=== PATIENT | male | born 1995 | race Caucasian/White ===

== ENCOUNTER 2017-06-11 16:10 | Emergency (ER) | payer SELFPAY ==
[2017-06-11] MEDS ORDERED: Ibuprofen TAB* 600 MG PO ONE (16:20)
[2017-06-11] MEDS ORDERED: methylPREDNISolone 125 MG* 2 ML VIAL IM ONE (16:20)
[2017-06-11] MEDS ORDERED: diPHENhydraMINE PO* 50 MG PO ONE (16:20)
[2017-06-11] MEDS ORDERED: Famotidine TAB* 20 MG PO ONE (16:20)
--- NOTE | 2017-06-11 16:28 | UC ---
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 NO PREVIOUS H/O ALLERGIC REACTION TO STINGS. BY EARLY AFTERNOON STARTED FEELING HEAD PRESSURE AND RIGHT FOREARM DEVELOPED REDNESS AND SWELLING AROUND STING SITE. OVER PAST 30 MINUTES OR SO HAS DEVELOPED HIVES RIGHT GROIN AND IN GLUTEAL FOLD. NO RESPIRATORY INVOLVEMENT. NO TONGUE/LIP SWELLING. TOOK 25 MG BENADRYL 2.5 HOURS AGO. - History of Current Complaint Chief Complaint: UCAllergicReaction Stated Complaint: REACTION TO WASP STING Time Seen by Provider: 06/11/17 16:15 Hx Obtained From: Patient Onset/Duration: Gradual Onset, Lasting Hours, Still Present Severity Initially: Mild Severity Currently: Moderate Pain Intensity: 8 Pain Scale Used: 0-10 Numeric Character: Swelling, Pruritus, Hives Aggrevating Factor(s): Nothing Alleviating Factor(s): Nothing Associated Signs And Symptoms: Positive: Rash. Negative: Abdominal Pain, Chest Pain, Cough Wheezing, Diaphoresis, Difficulty Breathing, Hoarseness, Lightheadedness, Nausea, Syncope, Throat Tightening - Related Hx Possible Reaction To: Insect - Allergies/Home Medications Allergies/Adverse Reactions: Allergies Allergy/AdvReac Type Severity Reaction Status Date / Time Amoxicillin Allergy Intermediate Rash Verified 06/11/17 16:16 Home Medications: Home Medications Diphenhydramine HCl [Benadryl Allergy 25 MG TAB] 25 mg PO Q8HR PRN 06/11/17 [ History Confirmed 06/11/17] PMH/Surg Hx/FS Hx/Imm Hx Previously Healthy: Yes - Surgical History Surgical History: Yes Surgery Procedure, Year, and Place: tear duct repair at - Family History Known Family History: Positive: Diabetes Negative: Hypertension - Social History Alcohol Use: Occasionally Substance Use Type: None Smoking Status (MU): Heavy Every Day Tobacco Smoker Household Exposure Type: Cigarettes - Immunization History Most Recent Tetanus Shot: less then 5 years ago Review of Systems Constitutional: Negative Skin: Rash, Other - REDNESS RIGHT ARM Respiratory: Negative Cardiovascular: Negative Gastrointestinal: Negative Musculoskeletal: Edema Neurological: Headache All Other Systems Reviewed And Are Negative: Yes Physical Exam Triage Information Reviewed: Yes Appearance: Well-Appearing, No Pain Distress, Well-Nourished Vital Signs: Initial Vital Signs Temp 98.9 F 06/11/17 16:12 Pulse 69 06/11/17 16:12 Resp 18 07/26/17 16:12 BP 131/69 06/11/17 16:12 Pulse Ox 98 06/11/17 16:12 Vital Signs Reviewed: Yes Eyes: Positive: Conjunctiva Clear ENT: Positive: Hearing grossly normal, Pharynx normal Neck: Positive: Supple, Nontender, No Lymphadenopathy Respiratory Exam: Normal Cardiovascular Exam: Normal Abdomen Description: Positive: Soft Musculoskeletal: Positive: Edema @ - RIGHT FOREARM Neurological: Positive: Alert Psychological: Positive: Age Appropriate Behavior Skin: Positive: rashes - ERYTHEMA AT STING SITE RIGHT FOREARM. HIVES RIGHT GROIN AND GLUTEAL CREASE Re-Evaluation - Re-Evaluation First Eval Re-Evaluation Time: 17:15 - FEELING BETTER AFTER SOLUMEDROL, PEPCID, BENADRYL AND IBUPROFEN. HIVES ARE IMPROVED. CHISHOLM IS LESS. WANTS TO GO HOME. Change: Improved Allergic Reaction Course/Dx - Differential Dx/Diagnosis Provider Diagnoses: ALLERGIC REACTION TO WASP STING Discharge - Discharge Plan Condition: Stable Disposition: HOME Prescriptions: Epinephrine [Epipen 2-Douglas] 0.3 mg IM ONCE PRN #1 inj PRN Reason: Allergy Symptoms predniSONE TAB* [Deltasone TAB*] 50 mg PO DAILY #5 tab Patient Education Materials: General Allergic Reaction (ED) Forms: *Work Release Referrals: Nilda Costa MD [Medical Doctor] - If Needed Additional Instructions: TAKE THE PREDNISONE DAILY STARTING TOMORROW. AVOID HEAT AND HOT WATER TAKE OTC ANTIHISTAMINE DAILY (CLARITIN (LORATADINE), ZYRTEC (CETIRIZINE) OR ANA (FEXOFENADINE) IN THE MORNING, BENADRYL AT NIGHT) DO NOT SCRATCH KEEP COOL, CLEAN AND DRY GO TO THE ER WITHOUT FAIL IF YOU DEVELOP ANY RESPIRATORY INVOLVEMENT.
[2017-06-11 17:36] VITALS: BP 114/61
== END 2017-06-11 17:34 | disposition home or self-care (01) ==
LOC: UCEAST 16:10
DX: T63.461A Toxic effect of venom of wasps, accidental (unintentional), initial encounter (principal); T78.40XA Allergy, unspecified, initial encounter; Y92.410 Unspecified street and highway as the place of occurrence of the external cause; Z72.0 Tobacco use
CPT/HCPCS: 96372; 99212; A9270-GY; G0463; J2930

== ENCOUNTER 2017-09-24 06:43 | Emergency (ER) | payer SELFPAY ==
[2017-09-24] MEDS ORDERED: Ibuprofen TAB* 600 MG PO ONE (07:26)
--- NOTE | 2017-09-24 08:08 | RAD ---
Indication: Left second finger injury. 3 views left second digit demonstrates fracture of the distal tuft of the second digit. Minimal displacement is noted. IMPRESSION: Fracture of the distal tuft of the second digit.
[2017-09-24 08:37] VITALS: BP 139/99
--- NOTE | 2017-09-24 09:08 | ED ---
Billy Castellanos Angela, scribed for Sky Chaves MD on 09/24/17 at 0730 . Upper Extremity Pain - HPI Summary HPI Summary: This pt is a 22 y/o male presenting to [facility] c/o pain and swelling on his left index finger since this morning. 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 His pain is aggravated with movement. Pt denies any other injuries. - History of Current Complaint Chief Complaint: EDExtremityUpper Stated Complaint: LEFT INDEX FINGER INJURY Hx Obtained From: Patient Mechanism Of Injury: Other - "smashed" between 2 cans Onset/Duration: Started Hours Ago, Traumatic, Still Present Timing: Constant, Lasting Hours Severity Currently: Severe - 8/10 pain Pain Location: Finger - left index Aggravating Factor(s): Movement Alleviating Factor(s): Nothing Associated Signs & Symptoms: Positive: Swelling, Other - left index pain Related History: Occupational Injury - Allergies/Home Medications Allergies/Adverse Reactions: Allergies Allergy/AdvReac Type Severity Reaction Status Date / Time Amoxicillin Allergy Intermediate Rash Verified 06/11/17 16:16 PMH/Surg Hx/FS Hx/Imm Hx Endocrine/Hematology History: Denies: Hx Diabetes, Hx Thyroid Disease Cardiovascular History: Denies: Hx Hypertension Respiratory History: Denies: Hx Asthma, Hx Chronic Obstructive Pulmonary Disease (COPD) GI History: Denies: Hx Ulcer - Surgical History Surgery Procedure, Year, and Place: tear duct repair at Infectious Disease History: No Infectious Disease History: Denies: Hx Hepatitis, Hx Human Immunodeficiency Virus (HIV), Traveled Outside the [place] in Last 30 Days - Family History Known Family History: Positive: Diabetes Negative: Hypertension - Social History Alcohol Use: Weekly Hx Substance Use: No Substance Use Type: Reports: None, Marijuana Substance Use Comment - Amount & Last Used: occasionally Hx Tobacco Use: Yes Smoking Status (MU): Light Every Day Tobacco Smoker Review of Systems Negative: Fever, Chills Eyes: Negative ENT: Negative Gastrointestinal: Negative Genitourinary: Negative Positive: Other - left index finger pain and swelling All Other Systems Reviewed And Are Negative: Yes Physical Exam - Summary Physical Exam Summary: Appearance: Well-appearing, no pain distress Skin: Warm, dry, color reflects adequate perfusion Head/face: Nml head/face Eyes: Nml eyes ENT: Nml ENT Neck: Supple, non-tender Respiratory: CTA, breath sound present Cardiovascular: RRR Abdomen: Abd soft, non-tender, Bowel: Bowel sounds present Musculoskeletal: LUE: very small subungual hematoma at the base of his left index finger nail laterally. Neurological: Nml neuro, sensory/motor intact, A&Ox3, CN Intact II-III Psychiatric: Nml psychiatric, affect/mood appropriate Triage Information Reviewed: Yes Vital Signs On Initial Exam: Initial Vitals Temp Pulse Resp BP Pulse Ox 98.8 F 72 20 137/79 98 09/24/17 06:44 09/24/17 06:44 09/24/17 06:44 09/24/17 06:44 09/24/17 06:44 Vital Signs Reviewed: Yes - Meagan Coma Scale Coma Scale Total: 15 Diagnostics - Vital Signs Vital Signs Temp Pulse Resp BP Pulse Ox 09/24/17 06:44 98.8 F 72 20 137/79 98 - Laboratory Lab Statement: Any lab studies that have been ordered have been reviewed, and results considered in the medical decision making process. - Radiology Left second finger XR Xray Interpretation: Positive (See Comments) - IMPRESSION: Fracture of the distal tuft of the second digit. ED physician has reviewed this radiology report and agrees. Radiology Interpretation Completed By: Radiologist Re-Evaluation - Re-Evaluation First Eval Re-Evaluation Time: 08:22 Comment: I reviewed the XR results with the pt. Course/Dx - Course Course Of Treatment: Mr. Mayer crushed his left index fingertip this AM on a garbage can. It is not open but there is a very small subungual hematoma. X- ray reveals a nondisplaced tuft fracture. I doubt I could get much blood out from under the nail so it is not worth converting it to an open fracture for comfort. We splinted him and gave him some pain medications and a few days off. - Diagnoses Provider Diagnoses: Subungual hematoma of left index finger, Closed fracture of tuft of distal phalanx of finger Discharge - Discharge Plan Condition: Stable Disposition: HOME Prescriptions: HYDROcodone/ACETAMIN 5-325 MG* [[place] 5-325 TAB*] 1 tab PO Q6H PRN #20 tab MDD 4 PRN Reason: Pain Patient Education Materials: Finger Fracture (ED) Forms: *Work Release Referrals: [facility] [place] [facility]ERR[facility] [Outside] Additional Instructions: Use the splint for comfort. RETURN TO THE ED FOR ANY WORSENING SYMPTOMS. The documentation as recorded by the Billy walker Angela accurately reflects the service I personally performed and the decisions made by me, Sky Chaves MD.
== END 2017-09-24 08:36 | disposition home or self-care (01) ==
LOC: ED 06:43
DX: S60.022A Contusion of left index finger without damage to nail, initial encounter (principal); R60.9 Edema, unspecified; W23.0XXA Caught, crushed, jammed, or pinched between moving objects, initial encounter; Y93.9 Activity, unspecified; Y92.9 Unspecified place or not applicable; F17.210 Nicotine dependence, cigarettes, uncomplicated
CPT/HCPCS: 73140; 99282; A9270-GY

== ENCOUNTER 2019-09-18 00:40 | Emergency (ER) | payer SELFPAY ==
[2019-09-18] MEDS ORDERED: Ketorolac INJ* 30 MG/ML 1 ML VIAL IM ONE (02:01)
[2019-09-18] MEDS ORDERED: Clindamycin CAP* 150 MG PO ONE (02:01)
[2019-09-18] MEDS ORDERED: oxyCODONE TAB* 5 MG TAB PO ONE (02:01)
--- NOTE | 2019-09-18 02:03 | ED ---
Throat Pain/Nasal Congestion - HPI Summary HPI Summary: 24-year-old male presents with dental pain for the past couple days. He states that a couple weeks ago he had dental abscess that was treated with antibiotics. He states that he decided not to have the tooth pulled. He states that the pain started in the left upper tooth. Denies any drainage from the area. He states that area is starting to feel more swollen. Denies any chest pressures or shortness of breath. No pain or swelling around his eyes. Has been taking Tylenol and ibuprofen for the pain. - History of Current Complaint Chief Complaint: EDDentalPain Time Seen by Provider: 09/18/19 01:53 - Allergies/Home Medications Allergies/Adverse Reactions: Allergies Allergy/AdvReac Type Severity Reaction Status Date / Time amoxicillin Allergy Rash Verified 09/18/19 00:45 PMH/Surg Hx/FS Hx/Imm Hx Endocrine/Hematology History: Denies: Hx Diabetes, Hx Thyroid Disease Cardiovascular History: Denies: Hx Hypertension Respiratory History: Denies: Hx Asthma, Hx Chronic Obstructive Pulmonary Disease (COPD) GI History: Denies: Hx Ulcer - Surgical History Surgery Procedure, Year, and Place: tear duct repair at Infectious Disease History: No Infectious Disease History: Denies: Hx Hepatitis, Hx Human Immunodeficiency Virus (HIV), Traveled Outside the [place] in Last 30 Days - Family History Known Family History: Positive: Diabetes Negative: Hypertension - Social History Alcohol Use: Weekly Hx Substance Use: No Substance Use Type: Reports: None, Marijuana Substance Use Comment - Amount & Last Used: occasionally Hx Tobacco Use: Yes Smoking Status (MU): Light Every Day Tobacco Smoker Review of Systems Negative: Fever Positive: Dental Pain Negative: Chest Pain Negative: Shortness Of Breath All Other Systems Reviewed And Are Negative: Yes Physical Exam Triage Information Reviewed: Yes Vital Signs On Initial Exam: Initial Vitals Temp Pulse Resp BP Pulse Ox 97.6 F 74 16 129/97 97 09/18/19 00:43 09/18/19 00:43 09/18/19 00:43 09/18/19 00:43 09/18/19 00:43 Vital Signs Reviewed: Yes Appearance: Positive: Well-Appearing Skin: Positive: Warm, Dry Head/Face: Positive: Normal Head/Face Inspection Eyes: Positive: Normal, EOMI, TAMIKO, Conjunctiva Clear ENT: Positive: Normal ENT inspection, Pharynx normal, TMs normal Dental: Positive: Percussion Tenderness @ - left upper teeth, Other - erythema near tooth 15 Respiratory/Lung Sounds: Positive: Clear to Auscultation, Breath Sounds Present Cardiovascular: Positive: Normal, RRR Musculoskeletal: Positive: Normal Neurological: Positive: Normal Psychiatric: Positive: Normal Procedures - Sedation Patient Received Moderate/Deep Sedation with Procedure: No Diagnostics - Vital Signs Vital Signs Temp Pulse Resp BP Pulse Ox 09/18/19 00:43 97.6 F 74 16 129/97 97 - Laboratory Lab Statement: Any lab studies that have been ordered have been reviewed, and results considered in the medical decision making process. EENT Course/Dx - Course Course Of Treatment: 24-year-old male presents with dental pain for the past couple days. He states that a couple weeks ago he had dental abscess that was treated with antibiotics. He states that he decided not to have the tooth pulled. He states that the pain started in the left upper tooth. Denies any drainage from the area. He states that area is starting to feel more swollen. Denies any chest pressures or shortness of breath. No pain or swelling around his eyes. Has been taking Tylenol and ibuprofen for the pain. On exam has tenderness over tooth 15 with some erythema around the tooth. Tooth is cracked. No abscess felt. Will place patient on clindamycin. Gave short course pain medication. told follow up with dentist. Patient understands and agrees with plan. - Differential Diagnoses Differential Diagnoses: Dental Abscess, Dental Caries, Fractured Tooth - Diagnoses Provider Diagnoses: Dental infection Discharge ED - Sign-Out/Discharge Documenting (check all that apply): Patient Departure - Discharge Plan Condition: Good Disposition: HOME Prescriptions: Clindamycin Cap(NF) [Clindamycin Cap 300 mg Cap(NF)] 300 mg PO TID #21 cap HYDROcodone/ACETAMIN 5-325 MG* [[place] 5-325 TAB*] 1 tab PO Q6H PRN #8 tab MDD 4 PRN Reason: Pain - Severe Patient Education Materials: Toothache (ED) Referrals: [facility] [place] [facility] [Outside] Additional Instructions: Take clindamycin three times a day for 7 days Take ibuprofen every 6 hours for pain as needed, use norco every 6 hours as needed for pain Avoid hard, crunchy food until seen by dentist Return to ED if develop any new or worsening symptoms Establish care with primary care physician and dentist as soon as possible - Billing Disposition and Condition Condition: GOOD Disposition: Home
[2019-09-18 02:21] VITALS: BP 119/78
== END 2019-09-18 02:19 | disposition home or self-care (01) ==
LOC: ED 00:40
DX: K04.7 Periapical abscess without sinus (principal); F17.200 Nicotine dependence, unspecified, uncomplicated; Z88.0 Allergy status to penicillin
CPT/HCPCS: 96372; 99282; A9270-GY; J1885

== ENCOUNTER 2021-05-22 11:12 | Inpatient (IN) ==
[2021-05-22 12:02] LABS: Urine Appearance Clear; Urine Bilirubin Negative (Negative); Urine Blood Negative (Negative); Urine Color Amber; Urine Glucose Negative (Negative); Urine Ketones Negative (Negative); Urine Nitrite Negative (Negative); Urine Protein 1+(30 mg/dL) (Negative); Urine Specific Gravity 1.036 (1.002-1.030); Urine Urobilinogen Negative (Negative)
[2021-05-22 12:14] LABS: Urine Bacteria Absent (Absent); Urine Red Blood Cell Absent (Absent); Urine White Blood Cell Absent (Absent)
[2021-05-22] MEDS ORDERED: NS 0.9% 1000 ml BAG 1,000 ML IV ONE (13:48)
[2021-05-22] MEDS ORDERED: Morphine 4 MG/ML VIAL (1 ml) IV ONE ×2 (13:48→16:00)
[2021-05-22] MEDS ORDERED: Ondansetron 4 mg VIAL 2 MG/ML 2 ml VIAL IV ONE (13:48)
[2021-05-22 14:46] LABS: Hematocrit 41 % (42-52); Hemoglobin 13.7 g/dL (14.0-18.0); Mean Corpuscular HGB Conc 34 g/dL (31-36); Mean Corpuscular Hemoglobin 29 pg (27-31); Mean Corpuscular Volume 87 fL (80-94); Mean Platelet Volume 8.3 fL (7.4-10.4); Platelet Count 306 10^3/uL (150-450); Red Blood Count 4.68 10^6 /uL (4.18-5.48); Red Cell Distribution Width 13 % (10-15); White Blood Count 17.4 10^3/uL (3.5-10.8)
[2021-05-22] MEDS ORDERED: Lactated Ringers 1000 ml BAG 1,000 ML IV ONE (14:49)
[2021-05-22 15:13] LABS: Albumin 4.2 g/dL (3.2-5.2); Albumin/Globulin Ratio 1.3 (1-3); C Reactive Protein 139.51 mg/L (<8.01); Calcium 9.5 mg/dL (8.6-10.3); EGFR African American 81.7 (>60); EGFR Non-African American 67.5 (>60); Globulin 3.3 g/dL (2-4); Potassium 4.1 mmol/L (3.5-5.0); Total Bilirubin 0.6 mg/dL (0.2-1.0); Total Protein 7.5 g/dL (6.4-8.9)
[2021-05-22] MEDS ORDERED: Ciprofloxacin 400mg IVPREMIX 400 MG/200 ML BAG IVPB ONE (15:17)
[2021-05-22] MEDS ORDERED: metroNIDAZOLE IV 500 MG/100ML 500 MG/100 ML BAG IVPB ONE (15:18)
[2021-05-22] MEDS ORDERED: Iohexol 300 (CONTRAST) 10 ML SDV IV ONE (15:20)
[2021-05-22] MEDS ORDERED: Lactated Ringers 1000 ml BAG 1,000 ML IV SCH ×2 (16:00→16:01)
[2021-05-22 17:48] LABS: ABS Eosinophils 0.1 10^3/ul (0-0.6); ABS Lymphocytes 2.2 10^3/ul (1.0-4.8); ABS Monocytes 1.5 10^3/ul (0-0.8); ABS Neutrophils 13.7 10^3/ul (1.5-7.7); Eosinophil % 0.5 %; Lymphocyte % 12.5 %
[2021-05-22] MEDS ORDERED: Magnesium Hydroxide LIQ 30 ML UDC PO PRN (17:56)
[2021-05-22] MEDS: metroNIDAZOLE IV 500 MG/100ML 500 MG/100 ML BAG IVPB SCH ×2 (19:12→19:13)
[2021-05-22] MEDS: NS 0.9% 1000 ml BAG 1,000 ML IV SCH (20:29)
[2021-05-22] MEDS: Morphine 2 MG/ML SYRINGE IV PRN (20:29)
[2021-05-22] MEDS ORDERED: Acetaminophen IV 1 GM/100ML 100 ML IVPB ONE (23:59)
[2021-05-23] MEDS: Morphine 2 MG/ML SYRINGE IV PRN ×3 (00:11→08:37)
[2021-05-23] MEDS: metroNIDAZOLE IV 500 MG/100ML 500 MG/100 ML BAG IVPB SCH ×3 (01:29→18:08)
[2021-05-23 05:17] LABS: Hematocrit 36 % (42-52); Hemoglobin 11.9 g/dL (14.0-18.0); Mean Corpuscular HGB Conc 34 g/dL (31-36); Mean Corpuscular Hemoglobin 29 pg (27-31); Mean Corpuscular Volume 87 fL (80-94); Mean Platelet Volume 8.3 fL (7.4-10.4); Platelet Count 293 10^3/uL (150-450); Red Blood Count 4.07 10^6 /uL (4.18-5.48); Red Cell Distribution Width 14 % (10-15); White Blood Count 16.9 10^3/uL (3.5-10.8)
[2021-05-23 05:35] LABS: Calcium 8.6 mg/dL (8.6-10.3); EGFR African American 96.4 (>60); EGFR Non-African American 79.7 (>60); Potassium 3.8 mmol/L (3.5-5.0)
[2021-05-23 07:51] LABS: ABS Basophils 0.1 10^3/ul (0-0.2); ABS Eosinophils 0.1 10^3/ul (0-0.6); ABS Lymphocytes 2.8 10^3/ul (1.0-4.8); ABS Monocytes 2.2 10^3/ul (0-0.8); ABS Neutrophils 11.7 10^3/ul (1.5-7.7); Eosinophil % 0.7 %; Lymphocyte % 16.4 %
[2021-05-23] MEDS: NS 0.9% 1000 ml BAG 1,000 ML IV SCH (08:37)
[2021-05-23] MEDS: Nicotine PATCH 14 MG/24 HR PATCH TRANSDERM SCH (09:06)
[2021-05-23 13:04] LABS: Chlamydia trachomatis NAA Negative (Negative); Neisseria gonorrhoeae (GC) NAA Negative (Negative)
[2021-05-23] MEDS: Ciprofloxacin 400mg IVPREMIX 400 MG/200 ML BAG IVPB SCH (16:20)
[2021-05-24] MEDS: metroNIDAZOLE IV 500 MG/100ML 500 MG/100 ML BAG IVPB SCH ×3 (02:47→17:54)
[2021-05-24] MEDS: Ciprofloxacin 400mg IVPREMIX 400 MG/200 ML BAG IVPB SCH ×2 (04:02→15:55)
[2021-05-24 05:53] LABS: Hematocrit 34 % (42-52); Hemoglobin 11.7 g/dL (14.0-18.0); Mean Corpuscular HGB Conc 34 g/dL (31-36); Mean Corpuscular Hemoglobin 30 pg (27-31); Mean Corpuscular Volume 87 fL (80-94); Mean Platelet Volume 7.9 fL (7.4-10.4); Platelet Count 299 10^3/uL (150-450); Red Blood Count 3.97 10^6 /uL (4.18-5.48); Red Cell Distribution Width 14 % (10-15); White Blood Count 9.7 10^3/uL (3.5-10.8)
[2021-05-24 06:22] LABS: Calcium 8.2 mg/dL (8.6-10.3); EGFR African American 101.8 (>60); EGFR Non-African American 84.1 (>60); Potassium 3.7 mmol/L (3.5-5.0)
[2021-05-24] MEDS: Nicotine PATCH 14 MG/24 HR PATCH TRANSDERM SCH (08:40)
[2021-05-25] MEDS: metroNIDAZOLE IV 500 MG/100ML 500 MG/100 ML BAG IVPB SCH ×2 (03:32→10:37)
[2021-05-25] MEDS: Ciprofloxacin 400mg IVPREMIX 400 MG/200 ML BAG IVPB SCH (05:01)
[2021-05-25 05:54] LABS: Hematocrit 36 % (42-52); Hemoglobin 12.1 g/dL (14.0-18.0); Mean Corpuscular HGB Conc 34 g/dL (31-36); Mean Corpuscular Hemoglobin 30 pg (27-31); Mean Corpuscular Volume 87 fL (80-94); Mean Platelet Volume 8.1 fL (7.4-10.4); Platelet Count 328 10^3/uL (150-450); Red Cell Distribution Width 13 % (10-15); White Blood Count 8.1 10^3/uL (3.5-10.8)
[2021-05-25 06:09] LABS: Calcium 8.7 mg/dL (8.6-10.3); EGFR African American 96.4 (>60); EGFR Non-African American 79.7 (>60); Magnesium 1.9 mg/dL (1.9-2.7); Potassium 4.1 mmol/L (3.5-5.0)
[2021-05-25] MEDS: Nicotine PATCH 14 MG/24 HR PATCH TRANSDERM SCH (10:47)
[2021-05-25 11:29] VITALS: BP 118/82
== END 2021-05-25 13:00 | disposition home or self-care (01) | DRG 244 ==
LOC: SSU 11:12 → ED 11:12 → SSU 20:13
PROVIDERS: ADMIT Internal Medicine; ATTEND Internal Medicine